=== PATIENT | female | born 1975 | race Caucasian/White ===

== ENCOUNTER 2018-11-08 10:59 | Emergency (ER) | payer BC ==
[2018-11-08 13:26] LABS: ABNORMAL IP MESSAGE 1; HEMATOCRIT 24.5 % (37.0-47.0); MEAN CORPUSCULAR HGB CONC 25.3 g/dl (32.0-37.0); MEAN CORPUSCULAR VOLUME 59.5 fl (82.0-101.0); MEAN PLATELET VOLUME 9.6 fl (7.4-10.4); PLATELET COUNT 572 10^3/UL (140-415); POSITIVE DIFF @See below; RED BLOOD COUNT 4.12 10^6/ul (4.20-5.40); RED CELL DISTRIBUTION WIDTH 19.3 % (11.5-14.5)
[2018-11-08 13:26] LABS: WHITE BLOOD COUNT 12.6 10^3/ul (4.8-10.8)
[2018-11-08 13:29] LABS: HEMOGLOBIN 6.2 g/dl (12.0-16.0)
[2018-11-08 13:30] LABS: ADD MAN DIFF? YES
[2018-11-08 13:38] LABS: ANION GAP 12 (5-13); BLOOD UREA NITROGEN 11 mg/dl (7-20); CALCIUM 9.6 mg/dl (8.4-10.2); CARBON DIOXIDE 25 mmol/L (21-31); CHLORIDE 104 mmol/L (97-110); CREATININE 0.77 mg/dl (0.44-1.00); Estimated GFR > 60 mL/min (>60); GLUCOSE 112 mg/dl (70-220); POTASSIUM 4.5 mmol/L (3.5-5.1); SODIUM 141 mmol/L (135-144)
[2018-11-08 13:50] LABS: ANISOCYTOSIS 3+ (0-0); BAND NEUTROPHILS #M 0.7 10^3/ul (0.0-0.6); BAND NEUTROPHILS % (M) 6 % (0-4); BASOPHIL #M 0.1 10^3/ul (0.0-0.0); BASOPHILS % (M) 1 % (0-2); GIANT THROMBO% (M) 1 % (0-0); HYPOCHROMASIA 2+ (0-0); LYMPHOCYTES #M 0.7 10^3/ul (0.8-2.9); LYMPHOCYTES % (M) 6 % (15-51); MICROCYTOSIS 3+ (0-0); MONOCYTE #M 0.3 10^3/ul (0.3-0.9); MONOCYTES % (M) 3 % (0-11); OVALOCYTES 2+ (0-0); PLATELET ESTIMATE INCREASED; POIKILOCYTOSIS 2+ (0-0); POLYCHROMASIA 2+ (0-0); REACTIVE LYMPHOCYTES #M 0.1 10^3/ul (0.0-0.0); REACTIVE LYMPHOCYTES% (M) 1 % (0-0); SEG NEUT #M 10.5 10^3/ul (1.6-7.5); SEGMENTED NEUTROPHILS (M) % 83 % (39-77); STOMATOCYTES 1+ (0-0)
[2018-11-08] MEDS: HYDROCODONE/APAP (5/325) TAB PO (14:03)
[2018-11-08 14:57] LABS: IMMEDIATE SPIN CROSSMATCH 1 1
== END 2018-11-08 18:41 | disposition home or self-care (01) ==
LOC: FTE 10:59
DX: H92.01 Otalgia, right ear (principal); R53.83 Other fatigue
CPT/HCPCS: 36430; 80048; 85025; 86850; 86900; 86901; 86920; 93005; 99285-25